=== PATIENT | male | born 1960 | race African-American/Black ===

== ENCOUNTER 2019-08-29 17:48 | Inpatient (IN) | payer OTHER ==
[2019-08-29 18:31] LABS: #Lymphocytes 0.5 thou/uL (1.20-3.40); #Monocytes 0.2 thou/uL (0.11-0.59); #Neutrophils 3.3 thou/uL (1.40-6.50); %Eosinophils 0.3 % (0.0-10.0); %Lymphocytes 12.8 % (21.0-51.0); %Monocytes 4.1 % (0.0-10.0); %Neutrophils 82.9 % (42.0-75.0); Mean Corpuscular HGB CONC 33.2 g/dL (32.0-36.0); Mean Corpuscular Hemoglobin 28.6 pg (27.0-31.0); Mean Corpuscular Volume 86.2 fL (78.0-98.0); Mean Platelet Volume 8.4 fL (7.4-10.4); Platelet Count 128 thou/uL (130-400); RBC Distribution Width 13.6 % (11.5-14.5); Red Blood Cell (RBC) Count 4.21 mill/uL (4.70-6.10)
[2019-08-29] MEDS ORDERED: Azithromycin 500 MG VIAL ONE (18:31)
[2019-08-29] MEDS ORDERED: cefTRIAXone\\ROCEPHIN 2 GM VIAL ONE (18:31)
[2019-08-29] MEDS ORDERED: Sodium Chloride 0.9% 100 ML ONE (18:31)
[2019-08-29] MEDS ORDERED: Acetaminophen 325 MG TAB ONE (18:31)
--- NOTE | 2019-08-29 18:44 | RAD ---
Chest one view HISTORY: Dyspnea. FINDINGS: No comparison. Cardiac silhouette is magnified by projection. Pulmonary vasculature slightly engorged . Mediastinum is midline. Subtle areas severe scattered throughout each lung. No evidence of pneumothorax. playground monitor leads overlie the chest. IMPRESSION : Subtle patchy areas of ill-defined bilateral parenchymal airspace disease. Clinical correlation regar ding other signs and symptoms of possible viral pneumonitis is required.
[2019-08-29 18:54] LABS: ALT (SGPT) 38 U/L (8-55); AST (SGOT) 54 U/L (5-34); Albumin 3.7 g/dL (3.5-5.0); Alkaline Phosphatase 66 U/L (40-110); Anion Gap 15 mmol/L (10-20); BUN (Urea Nitrogen) 8 mg/dL (8.4-25.7); Bilirubin, Total 0.7 mg/dL (0.2-1.2); Calc. Creatinine Clearance 0 mL/min (70-130); Calcium 8.2 mg/dL (7.8-10.44); Carbon Dioxide 27 mmol/L (22-29); Chloride 100 mmol/L (98-107); Estimated GFR-MDRD Greater than 90; Globulin 3.3 g/dL (2.4-3.5); Glucose 164 mg/dL (70-105); Lipase 35 U/L (8-78); Potassium 3.6 mmol/L (3.5-5.1); Sodium 138 mmol/L (136-145)
[2019-08-29] MEDS ORDERED: Ibuprofen 800 MG TAB ONE (18:54)
--- NOTE | 2019-08-29 22:36 | PDOC.FPRHP ---
- History of Present Illness Chief Complaint: SOB History of Present Illness: This is a 58 yo male with a pmh HTN, Epilepsy, HLD who [facility] the [facility] with a cc of cough, SOB, and fever. He states that the symptoms started about 4-5 days ago and have been progressively worsening. He reports associated nausea, diarrhea, productive cough with yellow phelgm, fever, malaise, loss of taste and smell, and chills. His reason for coming tonight is his progressive SOB. He states that there are other confirmed cases of COVID-19 in the [facility] where he currently resides. He also endorses bilateral pleuritic chest pain. ED Course: Tylenol en route Ibuprofen 800 mg NS 1L Rocephin 2 g Azithromycin 500mg - Allergies/Adverse Reactions Allergies Allergy/AdvReac Type Severity Reaction Status Date / Time Penicillins Allergy Mild Rash Verified 08/29/19 23:04 - Home Medications Medication Instructions Recorded Confirmed Type Amlodipine [Norvasc] 10 mg PO DAILY 08/29/19 08/29/19 History Atorvastatin Calcium 40 mg PO DAILY 08/29/19 08/29/19 History Benzoyl Peroxide [Acne Cream 10%] 1 applic TOP DAILY 08/29/19 08/29/19 History Burnett Tar [PC Tar Shampoo 1%] 1 applic TOP .2X'S/WEEK 08/29/19 08/29/19 History FLUoxetine HCl 20 mg PO DAILY 08/29/19 08/29/19 History carBAMazepine [Carbamazepine] 400 mg PO DAILY 08/29/19 08/29/19 History levETIRAcetam [Levetiracetam] 500 mg PO BID 08/29/19 08/29/19 History - History PMHx: HLD, Seizures, HTN, depression PSHx: Neck surgery FHx:Non contributory Social: History of IV drug use and tobacco use - Review of Systems General: reports: fever/chills, weight/appetite/sleep changes, fatigue. denies : night sweats Eyes: denies: eye pain, vision changes ENT: reports: nasal congestion, rhinorrhea Respiratory: reports: cough, congestion, shortness of breath Cardiovascular: reports: chest pain. denies: palpitation, edema, paroxysmal nocturnal dyspnea Gastrointestinal: reports: nausea, diarrhea, abdominal pain. denies: vomiting Genitourinary: denies: incontinence, dysuria Skin: denies: rashes, lesions Musculoskeletal: denies: pain, tenderness Neurological: denies: numbness, syncope Psychological: denies: anxiety, depression - Vital signs BP: 136/52 HR: 88 RR: 26 Tmax: 99.9 Pox: 96% on 3L nc Wt: 113 kg - Physical Exam Constitutional: NAD, awake, alert and oriented, well developed HEENT: normocephalic and atraumatic, EOMI, grossly normal vision, grossly normal hearing, MMM Neck: trachea midline, no JVD Heart: RRR, normal S1/S2, no murmurs/rubs/gallops, pulses present Lungs: other (coarse breathsounds diffusely) Abdomen: soft, bowel sounds present, no masses/distention (Mild ttp periumbilical without rebound) Musculoskeletal: normal tone, ROM grossly normal Neurological: CN II-XII intact Skin: capillary refill <2 seconds Heme/Lymphatic: no unusual bruising or bleeding Psychiatric: normal mood and affect FMR H&P: Results - Labs Result Diagrams: 08/30/19 06:28 08/30/19 06:28 Lab results: WBC 4.0 thou/uL (4.8-10.8) L 08/29/19 18:14 Hgb 12.0 g/dL (14.0-18.0) L 08/29/19 18:14 Hct 36.3 % (42.0-52.0) L 08/29/19 18:14 MCV 86.2 fL (78.0-98.0) 08/29/19 18:14 Plt Count 128 thou/uL (130-400) L 08/29/19 18:14 Neutrophils % 82.9 % (42.0-75.0) H 08/29/19 18:14 Sodium 138 mmol/L (136-145) 08/29/19 18:14 Potassium 3.6 mmol/L (3.5-5.1) 08/29/19 18:14 Chloride 100 mmol/L (98-107) 08/29/19 18:14 Carbon Dioxide 27 mmol/L (22-29) 08/29/19 18:14 BUN 8 mg/dL (8.4-25.7) L 08/29/19 18:14 Creatinine 0.82 mg/dL (0.7-1.3) 08/29/19 18:14 Glucose 164 mg/dL (70-105) H 08/29/19 18:14 Lactic Acid 1.5 mmol/L (0.5-2.2) 08/29/19 18:14 Calcium 8.2 mg/dL (7.8-10.44) 08/29/19 18:14 Total Bilirubin 0.7 mg/dL (0.2-1.2) 08/29/19 18:14 AST 54 U/L (5-34) H 08/29/19 18:14 ALT 38 U/L (8-55) 08/29/19 18:14 Alkaline Phosphatase 66 U/L (40-110) 08/29/19 18:14 Serum Total Protein 7.0 g/dL (6.0-8.3) 08/29/19 18:14 Albumin 3.7 g/dL (3.5-5.0) 08/29/19 18:14 Lipase 35 U/L (8-78) 08/29/19 18:14 - Radiology Interpretation Chest x-ray Status: image reviewed by me, report reviewed by me (Subtle patchy areas of ill- defined bilateral parenchymal airspace disease. Clinical correlation regarding other signs and symptoms of possible viral pneumonitis is required.) FMR H&P: A/P - Problem List (1) Viral pneumonia Current Visit: Yes Status: Acute Code(s): J12.9 - VIRAL PNEUMONIA, UNSPECIFIED (2) HTN (hypertension) Current Visit: Yes Status: Acute Code(s): I10 - ESSENTIAL (PRIMARY) HYPERTENSION (3) HLD (hyperlipidemia) Current Visit: Yes Status: Acute Code(s): E78.5 - HYPERLIPIDEMIA, UNSPECIFIED (4) Seizures Current Visit: Yes Status: Acute Code(s): R56.9 - UNSPECIFIED CONVULSIONS - Plan This is a 58 yo male with a pmh of HTN, HLD, and seizures Viral pneumonia r/o COVID-19 -Admit to medical -Pending COVID-19 test from [facility] ER -Lymphopenia -Airborne/droplet precautions -S/P Azithromycin and rocephin -Pending Procal, D-dimer, CRP -Bilateral patchy infiltrates on CXR HTN -Continue home amlodipine HLD -Continue home atorvastatin Seizures -Continue home carbamazepine and levetiracetam Code: Full Prophlyaxis: Lovenox Family: 2 guards per protocol Diet: HH Fluids: SL Disposition: DC in 2-3 days PCP: Robert LOAIZA Addendum - Attending - Attending Attestation Date/Time: 08/30/19 3889 I personally evaluated the patient and discussed the management with Dr. Adair. I agree with the History, Examination, Assessment and Plan documented above with any addition or exceptions noted below.
[2019-08-29] MEDS ORDERED: Ondansetron ODT 4 MG TAB PO PRN (23:07)
[2019-08-29] MEDS ORDERED: Ondansetron PF 4 MG/2 ML Vial IVP PRN (23:07)
[2019-08-29 23:34] VITALS: BMI 33.6
[2019-08-30] MEDS: Acetaminophen 500 MG TAB PO PRN ×3 (04:29→16:47)
[2019-08-30 06:42] LABS: #Lymphocytes 0.6 thou/uL (1.20-3.40); #Monocytes 0.1 thou/uL (0.11-0.59); #Neutrophils 2.9 thou/uL (1.40-6.50); %Eosinophils 0.3 % (0.0-10.0); %Lymphocytes 15.8 % (21.0-51.0); %Monocytes 3.8 % (0.0-10.0); %Neutrophils 80.1 % (42.0-75.0); Hemoglobin 11.4 g/dL (14.0-18.0); Mean Corpuscular HGB CONC 32.1 g/dL (32.0-36.0); Mean Corpuscular Volume 87.2 fL (78.0-98.0); Mean Platelet Volume 8.2 fL (7.4-10.4); Platelet Count 126 thou/uL (130-400); RBC Distribution Width 13.7 % (11.5-14.5); Red Blood Cell (RBC) Count 4.08 mill/uL (4.70-6.10); White Blood Cell (WBC) Count 3.6 thou/uL (4.8-10.8)
[2019-08-30 06:46] LABS: PTT 28.1 SEC (22.9-36.1); Prothrombin Time 13.4 sec (12.0-14.7)
[2019-08-30 07:01] LABS: ALT (SGPT) 33 U/L (8-55); AST (SGOT) 48 U/L (5-34); Albumin 3.3 g/dL (3.5-5.0); Alkaline Phosphatase 56 U/L (40-110); Anion Gap 11 mmol/L (10-20); BUN (Urea Nitrogen) 8 mg/dL (8.4-25.7); Bilirubin, Total 0.7 mg/dL (0.2-1.2); Calc. Creatinine Clearance 168 mL/min (70-130); Calcium 8.2 mg/dL (7.8-10.44); Carbon Dioxide 28 mmol/L (22-29); Chloride 103 mmol/L (98-107); Estimated GFR-MDRD Greater than 90; Globulin 3.6 g/dL (2.4-3.5); Glucose 116 mg/dL (70-105); Potassium 3.4 mmol/L (3.5-5.1); Protein, Total 6.9 g/dL (6.0-8.3); Sodium 139 mmol/L (136-145)
--- NOTE | 2019-08-30 07:14 | PDOC.FM ---
- Subjective Subjective: pt resting in bed, dyspneic on O2 via NC. diaphoretic. only complaining of SOB. denies chills or chest pain - Objective Vital Signs & Weight: Vital Signs (12 hours) Temp Pulse Resp BP Pulse Ox 08/30/19 04:30 99.2 F 85 18 145/84 H 94 L 08/30/19 00:51 94 L 08/29/19 23:42 94 L 08/29/19 23:07 98.5 F 85 20 108/66 94 L Weight Weight 109.316 kg I&O: 08/29/19 08/30/19 08/31/19 06:59 06:59 06:59 Intake Total 350 Balance 350 Result Diagrams: 08/30/19 06:28 08/30/19 06:28 Phys Exam - Physical Examination Constitutional: NAD HEENT: moist MMs Neck: no JVD Respiratory: clear to auscultation bilateral Cardiovascular: RRR, no significant murmur Gastrointestinal: no distention Musculoskeletal: no edema Neurological: moves all 4 limbs Psychiatric: normal affect Skin: no rash Dx/Plan (1) HLD (hyperlipidemia) Code(s): E78.5 - HYPERLIPIDEMIA, UNSPECIFIED Status: Acute (2) HTN (hypertension) Code(s): I10 - ESSENTIAL (PRIMARY) HYPERTENSION Status: Acute (3) Seizures Code(s): R56.9 - UNSPECIFIED CONVULSIONS Status: Acute (4) Viral pneumonia Code(s): J12.9 - VIRAL PNEUMONIA, UNSPECIFIED Status: Acute (5) COVID-19 virus infection Code(s): U07.1 - COVID-19 Status: Acute - Plan Plan: Viral pneumonia r/o COVID-19 -lymphopenia, D-dimer/CRP elevated, Bilateral patchy infiltrates on CXR -Pending COVID-19 test from [facility] ER -Airborne/droplet precautions -S/P Azithromycin and rocephin HTN -Continue home amlodipine HLD -Continue home atorvastatin Seizures -Continue home carbamazepine and levetiracetam Code: Full Prophlyaxis: Lovenox Disposition: monitor respiratory status, consider restarting abx Addendum - Attending - Attending Attestation Date/Time: 08/30/19 9071 I personally evaluated the patient and discussed the management with Dr. Fernandez. I agree with the History, Examination, Assessment and Plan documented above with any addition or exceptions noted below. Patient now positive for COVID. Continue Azithro, Rocephin, Plaquenil, respiratory support. Monitor resp status closely.
[2019-08-30 07:28] LABS: Legionella Urinary Ag Negative (Negative); Strep pneumo Urine Ag NEGATIVE (NEGATIVE)
[2019-08-30] MEDS: FLUoxetine HCl 20 MG CAP PO SCH (08:26)
[2019-08-30] MEDS: Enoxaparin Sodium 40 MG/0.4 ML SYRINGE SC SCH (08:27)
[2019-08-30] MEDS: levETIRAcetam 500 MG TAB PO SCH ×2 (08:27→21:00)
[2019-08-30] MEDS: Atorvastatin Calcium 40 MG TAB PO SCH (08:27)
[2019-08-30] MEDS: carBAMazepine 200 MG TAB PO SCH (08:27)
[2019-08-30] MEDS: Amlodipine 10 MG TAB PO SCH (08:27)
[2019-08-30] MEDS ORDERED: Potassium Chloride 20 MEQ TAB PO SCH (09:00)
[2019-08-30] MEDS ORDERED: BENZOYL PEROXIDE TOP SCH (09:00)
[2019-08-30] MEDS ORDERED: COAL TAR TOP SCH (09:00)
[2019-08-30 10:28] LABS: SARS-CoV-2 MS2 Positive; SARS-CoV-2 N Gene Positive; SARS-CoV-2 S Gene Positive; SARS-CoV-2 orf1ab Positive
[2019-08-30] MEDS: Hydroxychloroquine Sulfate 200 MG TAB PO SCH (11:36)
[2019-08-30] MEDS ORDERED: cefTRIAXone\\ROCEPHIN 1 GM in Sodium Chloride 0.9% 100 ML IVPB SCH (17:00)
[2019-08-30] MEDS ORDERED: Azithromycin 500 MG in Sodium Chloride 0.9% 250 ML 250 ML IVPB SCH (18:00)
[2019-08-31] MEDS: Hydroxychloroquine Sulfate 200 MG TAB PO SCH (00:15)
[2019-08-31] MEDS: Acetaminophen 500 MG TAB PO PRN ×2 (00:28→08:39)
[2019-08-31 06:46] LABS: ALT (SGPT) 28 U/L (8-55); AST (SGOT) 44 U/L (5-34); Albumin 3.3 g/dL (3.5-5.0); Alkaline Phosphatase 56 U/L (40-110); Anion Gap 10 mmol/L (10-20); BUN (Urea Nitrogen) 9 mg/dL (8.4-25.7); Bilirubin, Total 0.5 mg/dL (0.2-1.2); Calc. Creatinine Clearance 166 mL/min (70-130); Calcium 8.5 mg/dL (7.8-10.44); Carbon Dioxide 30 mmol/L (22-29); Chloride 105 mmol/L (98-107); Estimated GFR-MDRD Greater than 90; Globulin 3.8 g/dL (2.4-3.5); Glucose 99 mg/dL (70-105); Potassium 3.8 mmol/L (3.5-5.1); Protein, Total 7.1 g/dL (6.0-8.3); Sodium 141 mmol/L (136-145)
[2019-08-31 06:52] LABS: #Lymphocytes 0.8 thou/uL (1.20-3.40); #Monocytes 0.2 thou/uL (0.11-0.59); #Neutrophils 2.7 thou/uL (1.40-6.50); %Basophils 0.2 % (0.0-1.0); %Eosinophils 0.3 % (0.0-10.0); %Lymphocytes 22.2 % (21.0-51.0); %Monocytes 5.4 % (0.0-10.0); Hemoglobin 11.3 g/dL (14.0-18.0); Mean Corpuscular HGB CONC 32.3 g/dL (32.0-36.0); Mean Corpuscular Hemoglobin 28.2 pg (27.0-31.0); Mean Corpuscular Volume 87.3 fL (78.0-98.0); Mean Platelet Volume 7.7 fL (7.4-10.4); Platelet Count 156 thou/uL (130-400); RBC Distribution Width 13.7 % (11.5-14.5); Red Blood Cell (RBC) Count 4.02 mill/uL (4.70-6.10); White Blood Cell (WBC) Count 3.8 thou/uL (4.8-10.8)
--- NOTE | 2019-08-31 07:45 | PDOC.FM ---
- Subjective Subjective: pt resting in bed, dyspenic. feeling poorly. tolerating po - Objective Vital Signs & Weight: Vital Signs (12 hours) Temp Pulse Resp BP Pulse Ox 08/31/19 04:00 98.3 F 83 19 100/66 90 L 08/31/19 00:00 100 F H 85 20 115/75 90 L 08/30/19 20:00 98.5 F 85 20 115/72 90 L Weight Admit Weight 109.316 kg Weight 109.316 kg I&O: 08/30/19 08/31/19 09/01/19 06:59 06:59 06:59 Intake Total 350 Output Total 275 Balance 350 -275 Result Diagrams: 08/31/19 06:05 08/31/19 06:05 Phys Exam - Physical Examination Constitutional: NAD HEENT: moist MMs Neck: no JVD Respiratory: clear to auscultation bilateral Cardiovascular: RRR, no significant murmur Gastrointestinal: no distention Musculoskeletal: pulses present Neurological: moves all 4 limbs Psychiatric: normal affect Skin: no rash Dx/Plan (1) HLD (hyperlipidemia) Code(s): E78.5 - HYPERLIPIDEMIA, UNSPECIFIED Status: Acute (2) HTN (hypertension) Code(s): I10 - ESSENTIAL (PRIMARY) HYPERTENSION Status: Acute (3) Seizures Code(s): R56.9 - UNSPECIFIED CONVULSIONS Status: Acute (4) Viral pneumonia Code(s): J12.9 - VIRAL PNEUMONIA, UNSPECIFIED Status: Acute (5) COVID-19 virus infection Code(s): U07.1 - COVID-19 Status: Acute - Plan Plan: COVID-19 -lymphopenia, D-dimer/CRP elevated, Bilateral patchy infiltrates on CXR, PCR + -Airborne/droplet precautions -Azithromycin, rocephin, plaquenil - monitor mg, QT, inflammatory markers Acute hypoxic respiratory distress - requiring 4L NC - abg today - close monitoring for escalation of respiratory support HTN -Continue home amlodipine HLD -Continue home atorvastatin Seizures -Continue home carbamazepine and levetiracetam Code: Full Prophlyaxis: Lovenox Disposition: monitor respiratory status Addendum - Attending - Attending Attestation Date/Time: 08/31/19 5927 I personally evaluated the patient and discussed the management with Dr. Fernandez. I agree with the History, Examination, Assessment and Plan documented above with any addition or exceptions noted below. Patient overall stable. Obtaining ABG due to borderline sats. He says breathing overall stable. COVID positive. Continue Abx and Plaquenil. Serial CXR. If worsens will need Xfer to CCU for more intensive respiratory support.
[2019-08-31] MEDS: Atorvastatin Calcium 40 MG TAB PO SCH (08:38)
[2019-08-31] MEDS: levETIRAcetam 500 MG TAB PO SCH ×2 (08:38→19:47)
[2019-08-31] MEDS: carBAMazepine 200 MG TAB PO SCH (08:38)
[2019-08-31] MEDS: FLUoxetine HCl 20 MG CAP PO SCH (08:38)
[2019-08-31] MEDS: Amlodipine 10 MG TAB PO SCH (08:39)
[2019-08-31] MEDS: Enoxaparin Sodium 40 MG/0.4 ML SYRINGE SC SCH (08:39)
[2019-08-31 09:54] LABS: Actual Bicarbonate (HCO3a) 28.7 mEq/L (22-28); Base Excess (BEa) 4.1 mEq/L (-2.0 to +3.0); CO2 Tension 43.3 mmHg (35.0-45.0); Calcium, Ionized 1.14 mmol/L (1.12-1.30); Potassium - ABG Lab 3.68 mmol/L (3.70-5.30); pH, Arterial 7.44 (7.35-7.45)
[2019-08-31 09:57] LABS: O2 Tension (PaO2), arterial 58.5 mmHg (80.0-100.0); Puncture Site L.B.
[2019-08-31 09:58] LABS: ALV-art Gradient 144.055 (0-20)
[2019-08-31 11:21] LABS: Prothrombin Time 13.1 sec (12.0-14.7)
[2019-08-31 11:48] VITALS: BP 109/72
[2019-08-31] MEDS ORDERED: Hydroxychloroquine Sulfate 200 MG TAB PO SCH ×2 (12:00→21:00)
--- NOTE | 2019-08-31 13:00 | RAD ---
PORTABLE CHEST: HISTORY: COVID pneumonia. COMPARISON: 08/29/2019. FINDINGS: Bilateral infiltrates have become more pronounced. The peripheral infiltrates are more confluent whe n compared to the prior study. Heart and mediastinum remain stable. IMPRESSION: Bilateral peripheral infiltrates have become more confluent since the prior exam indicating increasin g consolidation. POS: AGW
--- NOTE | 2019-08-31 14:02 | PDOC.EVN ---
Event Note - Event Note Event Note: called to eval pt 1330 for hypoxia. Saturations in the low 80s on 5L. pt tachynpniec, Day 7 of COVID, anticipate potential need for further respiratory support. will initiate HFNC and trasnfer to ICU. monitor resp status and consider intubation and mechanical ventilation in the near future if pt continues to deteriorate despite HFNC.
--- NOTE | 2019-08-31 16:44 | CON ---
DATE OF CONSULTATION: 08/31/2019 HISTORY OF PRESENT ILLNESS: Mr. Moore is a 58-year-old male with COVID positive with diffuse infiltrates. He was transferred to the ICU because of hypoxemia. He is on high-flow oxygen now and appears comfortable. PAST MEDICAL HISTORY: Remarkable for: 1. Seizure disorder. 2. Hypertension. MEDICATIONS: He is on: 1. Hydroxychloroquine. 2. Azithromycin. 3. Rocephin. FAMILY HISTORY: Negative for lung disease in early age. REVIEW OF SYSTEMS: Noncontributory. PHYSICAL EXAMINATION: VITAL SIGNS: Currently, his oximetry is 96% on 50% high-flow, heart rates in 80s, respiratory rates in the 20s, and blood pressure is 95/50. GENERAL: He appears comfortable. DISCUSSION: At this point in time, he should be transferred to [facility]. He is a candidate for convalescent plasma, but this can be decided at the [facility] in [place] if transfer can be arranged. I talked with the critical clinical care coordinator down earlier today and it was his impression that there were beds available. This is a 70-minute consult, 50% of the time was spent on coordinating care. Job ID: [id number] MTDD
[2019-08-31 19:57] VITALS: TEMP 98.8
--- NOTE | 2019-08-31 20:23 | EKG ---
Test Reason : Blood Pressure : / mmHG Vent. Rate : 083 BPM Atrial Rate : 083 BPM P-R Int : 122 ms QRS Dur : 078 ms QT Int : 356 ms P-R-T Axes : 032 033 026 degrees QTc Int : 418 ms Normal sinus rhythm Normal ECG When compared with ECG of 29-AUG-2019 18:22, (Unconfirmed) No significant change was found Confirmed by FRENCH STOKES, SRuel ([id number]) on 08/31/2019 8:22:34 PM Referred By: ALICIA Confirmed By:DR. Tung BRASWELL MD
[2019-08-31] MEDS ORDERED: cefTRIAXone\\ROCEPHIN 1 GM in Sodium Chloride 0.9% 100 ML IVPB SCH (21:00)
[2019-08-31] MEDS ORDERED: Azithromycin 500 MG in Sodium Chloride 0.9% 250 ML 250 ML IVPB SCH (21:00)
[2019-08-31] MEDS ORDERED: Enoxaparin Sodium 40 MG/0.4 ML SYRINGE SC SCH (21:00)
--- NOTE | 2019-09-01 15:24 | PQF ---
CLINICAL DOCUMENTATION IMPROVEMENT CLARIFICATION FORM: ICD-10 Updated PLEASE DO AN ADDENDUM TO THE PROGRESS NOTE WITH ANY DOCUMENTATION UPDATES OR ADDITIONS AND CARRY THROUGH TO DC SUMMARY. THANK YOU. DATE: 09/01/19 ATTN: DR. VARGAS Please exercise your independent, professional judgment in responding to the clarification form. Clinical indicators are provided on the bottom of this form for your review Please check appropriate box(es): [ x] Sepsis present on admission [ ] Sepsis NOT present on admission [ ] Unable to determine Due to: covid [ ] SIRS due to non-infectious process (please specify etiology) [ ] Localized infection without sepsis [ ] Other diagnosis [ ] Unable to determine For continuity of documentation, please document condition throughout progress notes and discharge summary. Thank You. CLINICAL INDICATORS - SIGNS / SYMPTOMS / LABS / RESULTS AND LOCATION IN MR ER Record 08/28: VS: BP 138/90, Resp 34, Pulse 104 Temp. 102.9 Doctor Notes: "Pt meets criteria for sepsis with his tachycardia, fever, tachycardia. His source is bilateral pneumonia." H&P 08/28: WBC 4.0 Viral pneumonia r/o COVID-19 LAB: C-Reactive Protein 10.66 (08/28) 16.59 (08/30) RISKS: H&P 08/28: PMH HTN, Epilepsy. PN 08/29: Viral pneumonia. Covid-19 virus infection. TREATMENT: IV Azithromycin (ER-08/30) IV Rocephin (ER-08/30) IV fluids (ER) Blood cultures 08/28 Serial labs Critical Care monitoring SAP Life Skills Instructor Crystal Reports Winform Viewer (This form is maintained as a part of the permanent medical record) 2014 [employer]. All Rights Reserved PLACIDO [email or web address] Cell [facility]
--- NOTE | 2019-09-01 15:35 | PQF ---
CLINICAL DOCUMENTATION IMPROVEMENT CLARIFICATION FORM: ICD-10 Updated PLEASE DO AN ADDENDUM TO THE PROGRESS NOTE WITH ANY DOCUMENTATION UPDATES OR ADDITIONS AND CARRY THROUGH TO DC SUMMARY. THANK YOU. DATE: 09/01/19 ATTN: DR. VARGAS Please exercise your independent, professional judgment in responding to the clarification form. Clinical indicators are provided on the bottom of this form for your review Please check appropriate box(s): [ x ] Acute Respiratory Failure: [ x] with Hypoxia[ ] with Hypercapnia [ ] Acute On Chronic Respiratory Failure: [ ] with Hypoxia [ ] with Hypercapnia [ ] Acute Respiratory Failure due to: (etiology) [ ] Other diagnosis [ ] Unable to determine In addition, please specify: Present on Admission (POA): [ x ] Yes [ ] No [ ] Unable to determine For continuity of documentation, please document condition throughout progress notes and discharge summary. Thank You. CLINICAL INDICATORS - SIGNS / SYMPTOMS / LABS / RESULTS AND LOCATION IN MR (Event note 08/30) "Sats in the low 80s...will initiate HFNC and transfer to ICU." LAB 08/30: ABG pO2 58.5 on 4L NC ER Record 08/28: VS: BP 138/90, Resp 34, Pulse 104 Temp. 102.9 Risks: Covid Pneumonia (PN 12- Arias) Treatment: Critical Care monitoring Supplemental oxygen ABGs 08/30 Acute Respiratory Failure: ABG pH < 7.35 or > 7.45; Decreased oxygen saturation (<90% room air or < 95% on oxygen); PCO2 > 50 mm Hg; PO2 < 60 mm Hg; Labored or rapid respirations ARDS: Dx Criteria [[place] ARDS]: Respiratory symptoms within one week of a known clinical insult (e.g. shock, infection, surgery, trauma) Bilateral opacities in CXR/Chest CT not due to CHF or fluid SAP Deputy United [employer] Marshal Crystal Reports Winform Viewer (This form is maintained as a part of the permanent medical record) 2014 [employer]. All Rights Reserved PLACIDO [email or web address] Cell [facility]
--- NOTE | 2019-09-02 06:11 | DIS ---
DATE OF ADMISSION: 08/29/2019 DATE OF DISCHARGE: 08/31/2019 DATE OF TRANSFER: 08/31/2019. ADMITTING ATTENDING: Dr. Gordo Long. TRANSFER ATTENDING: Dr. Amos Melissa. CONSULT: Pulmonology, Dr. Danie Arias. IMAGING DATA: Chest x-ray on 08/29/2019; significant for subtle patchy areas, ill-defined bilateral parenchymal airspace disease. Consolidation of these opacities was noted on 08/31/2019 x-ray. DISCHARGE MEDICATIONS: 1. Atorvastatin 40 mg p.o. daily. 2. Amlodipine 10 mg p.o. daily. 3. Levetiracetam 500 mg p.o. b.i.d. 4. Carbamazepine 400 mg p.o. daily. 5. Azithromycin 500 mg IV piggyback. 6. Rocephin 1 g IV piggyback. 7. Lovenox 40 mg s.c. b.i.d. 8. Plaquenil 200 mg p.o. at 0900 hours and 2100 hours. TRANSFER DIAGNOSES: 1. COVID-19 infection. 2. Acute hypoxic respiratory distress. SECONDARY DIAGNOSES: Hypertension, hyperlipidemia, and seizures. HISTORY OF PRESENT ILLNESS/HOSPITAL COURSE: Mr. Moore is a 58-year-old male, who presents with a past medical history of hypertension and epilepsy, [facility] with chief complaint of cough, shortness of breath, and fever starting about 4 to 5 days ago and progressively worsening. He was admitted to the ER, swabbed for COVID, and antibiotics to cover for community-acquired pneumonia were began. The patient continued to increase in his oxygen requirement throughout his stay, became more symptomatic, was eventually needed to be transitioned to high-flow nasal cannula and monitored in the unit. At that time, [facility] was contacted for transfer for long-term care of COVID patient. COVID did come back positive on 08/29/2019. The patient was transferred to [facility] on 08/31/2019, in stable condition. Job ID: [id number]
--- NOTE | 2019-09-04 13:00 | EKG ---
Test Reason : Blood Pressure : / mmHG Vent. Rate : 102 BPM Atrial Rate : 102 BPM P-R Int : 122 ms QRS Dur : 068 ms QT Int : 310 ms P-R-T Axes : 024 028 023 degrees QTc Int : 404 ms Sinus tachycardia Confirmed by MARY MORELOS DO ([id number]), acquisition editor ALEKSANDRA NATION ([id number]) on 09/04/2019 1:00:18 PM Referred By: Confirmed By:MARY MORELOS DO
== END 2019-08-31 20:21 | disposition short-term general hospital (02) | DRG 871 ==
LOC: ERS 17:48 → EEVIPCON 22:11 → T4-B 22:11 → CCU 08-31 14:45
PROVIDERS: ADMIT Emergency Medicine; ATTEND Emergency Medicine
PROC: 8E0ZXY6 Isolation (ICD-10-PCS; principal; 2019-08-29)
DX: A41.89 Other specified sepsis (principal); U07.1 COVID-19; J12.89 Other viral pneumonia; J96.01 Acute respiratory failure with hypoxia; I10 Essential (primary) hypertension; E78.5 Hyperlipidemia, unspecified; G40.909 Epilepsy, unspecified, not intractable, without status epilepticus; D72.810 Lymphocytopenia; E78.00 Pure hypercholesterolemia, unspecified; F32.9 Major depressive disorder, single episode, unspecified; Z88.0 Allergy status to penicillin
CPT/HCPCS: 36415; 71045; 80053; 82728; 82805; 83605; 83615; 83690; 83735; 84145; 84484; 85025; 85379; 85384; 85520; 85610; 85730; 86140; 86850; 86900; 86901; 87040; 87449; 87635; 87899; 93005; 93010; 96365; 96367; J0456; J0696; J1650; J3490; J7050; U0003